=== PATIENT | female | born 1995 | race Caucasian/White ===

== ENCOUNTER 2018-09-22 21:13 | Emergency (ER) | payer OTHER, SELFPAY ==
--- OUTSIDE RECORDS SUMMARY | 2018-09-22 21:17 | XMS REPORT | Continuity of Care Document ---
:1995 Author Organization [facility] Address [address] [place] [address] Phone Unavailable Care Team Providers Name Role Phone PHYSICIAN, NO Primary Care Physician Unavailable Insurance Providers Guarantor Shady Greene Address [address] [place] [address] Email NONE Payer [facility] Policy Number [id number] Subscriber's Name Tarun Greene Relationship Spouse Group Number [id number] Group Name NA Payer [facility] Policy Number [id number] Subscriber's Name Shady Greene Relationship Self / Same As Patient Group Number NA Group Name NA Advance Directives Directive Response Recorded Date/Time Advance Directives No 07/12/15 3:04pm Directive to Physicians/Living Will No 07/12/15 3:04pm Health Care Proxy No 07/12/15 3:04pm Organ Donor Yes 07/12/15 3:04pm Medical Power of Railroad Dispatcher No 07/12/15 3:04pm Patient/Family Given Education Material R/T Y - 04/21/18...SBM 04/21/18 10: 07am Directives? Problems Medical Problem Onset Date Status 39 weeks gestation of Unknown care and examination immediately after delivery Unknown Vaginal delivery Unknown Acute Surgical Problem Onset Date Status Status post normal vaginal delivery Unknown Medications Current Home Medications Medication Dose Units Route Directions Days Qty Instructions Start Date Ibuprofen 800 800 Mg ORAL Every 8 Hours 40 Tablet 03/15/17 Mg Tab as needed for Pain 1 Tab ORAL Once Daily Multivit-Min W/Fe-Fa * ( *) Tab Past Home Medications Medication Directions Ordered Status Hydrocodone-Acetaminophen Every 4-6H As Needed/ Pain as 07/12/15 Discontinued 5/325MG * ([place] 5/325MG *) 1 needed for Pain Tab Tab, 1-2 Tabs Oral Hydrocodone-Acetaminophen Every 4-6H As Needed/ Pain as 07/12/15 Discontinued 5/325MG * ([place] 5/325MG *) 1 needed for Pain Tab Tab, 1-2 Tabs Oral Ibuprofen 800 Mg Tab, 800 Mg Every 6 Hours As Needed 07/12/15 Discontinued Oral Social History Smoking Status Start Date Stop Date Never smoker Hospital Discharge Instructions No hospital discharge instruction information available. Plan of Care Discharge Date 04/21/18 1:10pm Disposition PATIENT DISCHARGE HOME OR SELF Instructions/Education Provided Third Trimester of Prescriptions See Medication Section Functional Status No functional status information available. Allergies, Adverse Reactions, Alerts No known allergies. Immunizations Immunization Event Date Type Not Given Dose Number Lot Number Extract Mixer Reason TDaP 03/14/17 Not Given Patient refusal SANOFI PS Vital Signs No vital sign information available. Results Laboratory Results Test Name Result Units Flags Reference Collection Result Comments Date/Time Date/Time Specimen Type QUEST 03/27/2018 03/27/2018 TESTS SENT TO LAB PREFERENCE OF CUSTOMER OR CUSTOMERS (Misc Panel) 10:38am 10:39am INSURANCE Urine Color LIGHT 04/21/2018 04/21/2018 YELLOW 10:28am 11:13am Urine CLEAR CLEAR 04/21/2018 04/21/2018 Appearance 10:28am 11:13am Urine Glucose NEGATIVE NEGATIVE 04/21/2018 04/21/2018 10:28am 11:13am Urine Bilirubin NEGATIVE NEGATIVE 04/21/2018 04/21/2018 10:28am 11:13am Urine Ketones NEGATIVE NEGATIVE 04/21/2018 04/21/2018 10:28am 11:13am Urine Specific 1.011 1.003-1.030 04/21/2018 04/21/2018 [place] 10:28am 11:13am Urine Blood NEGATIVE NEGATIVE 04/21/2018 04/21/2018 10:28am 11:13am Urine pH 8.000 5-9 04/21/2018 04/21/2018 10:28am 11:13am Urine Protein NEGATIVE NEGATIVE 04/21/2018 04/21/2018 10:28am 11:13am Urine NORMAL mg/dL 0.2-1.0 04/21/2018 04/21/2018 Urobilinogen 10:28am 11:13am Urine Nitrate NEGATIVE NEGATIVE 04/21/2018 04/21/2018 10:28am 11:13am Urine Leukocyte NEGATIVE NEGATIVE 04/21/2018 04/21/2018 Esterase 10:28am 11:13am Urine RBC <1 /hpf 0-5 04/21/2018 04/21/2018 10:28am 11:25am Urine WBC 1-5 /hpf 0-5 04/21/2018 04/21/2018 10:28am 11:25am Urine 1-5 /hpf 0-5 04/21/2018 04/21/2018 Epithelial 10:28am 11:25am Cells Urine Bacteria MODERATE /hpf H None Detect 04/21/2018 04/21/2018 (2+) 10:28am 11:25am Urine Casts None /lpf None Detect 04/21/2018 04/21/2018 Detected 10:28am 11:25am Urine Culture YES 04/21/2018 04/21/2018 --- 04/21/18 1125 --- Reflexed 10:28am 11:25am URINE CULTURE? previously reported as: NO Procedures No procedure information available. Encounters Encounter Location Arrival/Admit Date Discharge/Depart Date Attending Provider Departed [place] 04/21/18 10:12am 04/21/18 1:10pm SRINIVAS, Emergency Room Formerly [facility] SKY Baird MD Medical Ctr Registered [place] 03/27/18 10:37am DICLEMENTHaris, Referred Regional TARUN Hu MD Medical Ctr Registered [place] 02/26/18 1:04pm DICMALCOLM, Referred Regional TARUN Hu MD Medical Ctr
--- OUTSIDE RECORDS SUMMARY | 2018-09-22 21:17 | XMS REPORT | Encounter Summary ---
:1995 Author Reason for Visit ob 36 week visit Instructions 1. Routine care US, obstetric, limited urinalysis, dipstick Discussion Note Advised patient to monitor movement and report if decreased. Labor symptoms reviewed. Take PNV and iron daily if tolerated. Asked her to call if she has symptoms of ruptured membranes or persistent regular contractions. Patient educational handouts: No information available. Plan of Care Reminders Provider Appointments OB Follow up García Gerard, 06/30/2018 2:45PM Lab Urinalysis, In-House Results Dipstick 06/23/2018 Referral None recorded. Procedures None recorded. Surgeries None recorded. Imaging US, In-House Results Obstetric, Limited 06/23/2018 Medications Name Start Date Macrobid 100 mg capsule Take 1 capsule twice a day by oral route for 5 days. omeprazole 40 mg capsule,delayed release Take 1 capsule every day by oral route. Vistaril 50 mg capsule Take 1 capsule every 6 hours by oral route as needed. Zithromax Z-Herminio 250 mg tablet TAKE 2 TABLETS (500 MG) po now, THEN 1 TABLET (250 MG) po ONCE DAILY FOR 4 DAYS Medications Administered None recorded. Vitals Height BMI Blood Pressure 5 ft 5 in 40.1 kg/m2 115/92 mm[Hg] Lab Results Date Name Specimen Result Interpretation Description Value Range Status Address 06/23/2018 Urinalysis, Leukocytes Small In-House Dipstick Results: For Internal Use Only Nitrite negative In-House Results: For Internal Use Only Urobilinogen .2 In-House Results: For Internal Use Only Protein Negative In-House Results: For Internal Use Only Ph 7.5 In-House Results: For Internal Use Only Blood Negative In-House Results: For Internal Use Only Specific 1.020 In-House [place] Results: For Internal Use Only Ketone Negative In-House Results: For Internal Use Only Bilirubin Negative In-House Results: For Internal Use Only Glucose Negative In-House Results: For Internal Use Only Appearance Clear In-House Results: For Internal Use Only Color Yellow In-House Results: For Internal Use Only 06/09/2018 Streptococcus Results Final [place] Group B, Regional Culture, Vaginal [facility] or [facility] (Lab): [address] [place] [address] US, Obstetric, No observation In-House Limited recorded. Results: For Internal Use Only Allergies Code Code System Name Reaction Severity Status Onset NKDA Problems Name Status Onset Date Source Active 04/24/2018 Gastroesophageal Reflux Disease without Active 05/02/2018 Esophagitis Acute Cystitis in , Antepartum Active 05/02/2018 Exposure to Bordetella Pertussis Active 05/26/2018 History of Delivery of Macrosomal Infant Active Procedures Date Name Performed by Cataract Surgery Complex Information not available 06/23/2018 US, Obstetric, Limited In-House Results For Internal Use Only [address] Vaccine List None recorded. Social History Smoking Status Never Smoker Past Encounters 06/23/2018 Routine Care García Gerard MD: [address] [place] [phone], Ph. [phone] 06/09/2018 Screening; Gastroesophageal Reflux Disease without Esophagitis; History of Delivery of Macrosomal DESTINY Coto: [address] [place] [phone], Ph. [phone] History of Present Illness None recorded. Review of Systems None recorded. Physical Exam None recorded.
--- OUTSIDE RECORDS SUMMARY | 2018-09-22 21:17 | XMS REPORT | Encounter Summary ---
:1995 Author Reason for Visit ob 35 week visit Instructions 1. screening streptococcus group B, culture, vaginal or rectal 2. Gastroesophageal reflux disease without esophagitis 3. History of delivery of macrosomal Discussion Note Discussed GBS and reason for testing. Discussed movement and PTL symptoms. Reminded patient to take iron and PNV, stay well hydrated, and call if movement is decreased, or if regular contractions, bleeding, or symptoms of ruptured membranes occur. Patient educational handouts: No information available. Plan of Care Reminders Provider Appointments OB Sono Sonogram 06/23/2018 10:45AM OB Sono García Gerard, 06/23/2018 10:45AM Lab Streptococcus In-House Results Group B, Culture, Vaginal 06/09/2018 or Rectal Referral None recorded. Procedures None recorded. Surgeries None recorded. Imaging None recorded. Medications Name Start Date Macrobid 100 mg [...] DAYS Medications Administered None recorded. Vitals Height Weight BMI Blood Pressure 5 ft 5 in 237 lbs 39.4 kg/m2 121/83 mm[Hg] Lab Results Date Name Specimen Result Interpretation Description Value Range Status Address 05/23/2018 Urinalysis, Leukocytes Trace In-House Dipstick Results: For Internal Use Only Nitrite negative In-House Results: For Internal Use Only Urobilinogen .2 In-House Results: For Internal Use Only Protein Negative In-House Results: For Internal Use Only Ph 7.0 In-House Results: For Internal Use Only Blood Negative In-House Results: For Internal Use Only Specific 1.020 In-House [place] Results: For Internal Use Only Ketone Negative In-House Results: For Internal Use Only Bilirubin Negative In-House Results: For Internal Use Only Glucose Negative In-House Results: For Internal Use Only Appearance Clear In-House Results: For Internal Use Only Color Yellow In-House Results: For Internal Use Only US, Obstetric, No observation In-House Limited recorded. Results: For Internal Use Only Allergies Code Code System Name Reaction Severity Status Onset NKDA Problems Name Status Onset Date Source Active 04/24/2018 Gastroesophageal Reflux Disease without Active 05/02/2018 Esophagitis Acute Cystitis in , Antepartum Active 05/02/2018 Exposure to Bordetella Pertussis Active 05/26/2018 History of Delivery of Macrosomal Active Procedures Date Name Performed by Cataract Surgery Complex Information not available 05/23/2018 US, Obstetric, Limited In-House Results For Internal Use Only [address] Vaccine List None recorded. Social History Smoking Status Never Smoker Past Encounters 06/09/2018 Screening; Gastroesophageal Reflux Disease without Esophagitis; History of Delivery of Macrosomal Infant DESTINY Coto: [address] [place] [phone], Ph. [phone] 05/23/2018 Routine Care; History of Delivery of Macrosomal Infant García Gerard MD: [address] [place] [address], Ph. [phone] History of Present Illness Note: Presents for 35 week LEVAR/GBS visit after missed 34 week LEVAR. Daryl ann contractions for pastweek without bleeding, LOF, or regularity. Very good daily fm. Taking pnv/iron. Desires to discuss IOL.Review of Systems: ROS as noted in the HPI Review of Systems None recorded. Physical Exam None recorded.
--- OUTSIDE RECORDS SUMMARY | 2018-09-22 21:18 | XMS REPORT | Encounter Summary ---
:1995 Author Reason for Visit Pre- OP Instructions 1. Pre-surgery evaluation test, urine urinalysis, dipstick Tylenol-Codeine #3 300 mg-30 mg tablet ibuprofen 800 mg tablet 2. Sterilization requested Discussion Note Risks, benefits, and alternatives of laparoscopic bilateral tubal ligation discussed. Permanent nature of procedure, risk of future regret, and possible failure rate of 0.5-1 % reviewed. Written info given. Procedure scheduled for 08/20/18. Patient educational handouts: No information available. Plan of Care Reminders Provider Appointments Surgery García Gerard, 08/20/2018 9:30AM Post Op Visit García Gerard, 09/01/2018 10:45AM Lab In-House Results Test, Urine 08/18/2018 Urinalysis, In-House Results Dipstick 08/18/2018 Referral None recorded. Procedures None recorded. Surgeries None recorded. Imaging None recorded. Medications Name Start Date ibuprofen 800 mg tablet Take 1 tablet every 6 hours by oral route as needed. Macrobid 100 mg capsule Take 1 capsule twice a day by oral route for 5 days. omeprazole 40 mg capsule,delayed release Take 1 capsule every day by oral route. Tylenol-Codeine #3 300 mg-30 mg tablet 1-2 p.o. q 6 hrs PRN pain Vistaril 50 mg capsule Take 1 capsule every 6 hours by oral route as needed. Zithromax Z-Herminio 250 mg tablet TAKE 2 TABLETS (500 MG) po now, THEN 1 TABLET (250 MG) po ONCE DAILY FOR 4 DAYS Medications Administered None recorded. Vitals Height Weight BMI Blood Pressure 5 ft 5 in 230.8 lbs 38.4 kg/m2 128/92 mm[Hg] Lab Results Date Name Specimen Result Interpretation Description Value Range Status Address 08/18/2018 CBC W/ Normal White Blood 9.4 K/uL 4.0-11.5 Final [place] Auto Diff Count K/uL [facility] Red Blood 4.81 M/uL 3.80-5.20 Final [place] Count M/uL [facility] (Lab): [address] [place] [address] Normal Hemoglobin 11.2 g/dL 10.5-15.7 Final [place] g/dL [facility] (Lab): [address] [place] [address] Normal Hematocrit 37.3 % 34.0-50.0 Final [place] % [facility] (Lab): [address] [place] [address] Low Mean 77.5 fL 78-98 fL Final [place] Corpuscular [facility] Volume [facility] (Lab): [address] [place] [address] Low Mean 23.4 pg 26.2-33.4 Final [place] Corpuscular pg [facility] Hemoglobin [facility] (Lab): [address] [place] [address] Mean 30.2 g/dL 31.5-36.2 Final [place] Corpuscular g/dL [facility] HGB [facility] (Lab): [address] [place] [address] High Red Cell 17.6 % 11.5-15.5 Final [place] Distribution % [facility] (Lab): [address] [place] [address] High Platelet 356 K/uL 137-338 Final [place] Count K/uL [facility] (Lab): [address] [place] [address] Low Mean 8.3 fL 8.4-11.8 Final [place] Platelet fL [facility] (Lab): [address] [place] [address] Normal Neutrophils 70.4 % 44.4-80.1 Corrected [place] % % [facility] (Lab): [address] [place] [address] Normal Lymphocyte% 21.9 % 10.0-50.0 Final [place] % [facility] (Lab): [address] [place] [address] Normal [place] % 4.6 % 3.6-12.04 Final [place] % [facility] (Lab): [address] [place] [address] Normal Eos % 2.6 % 0.0-5.41 Final [place] % [facility] (Lab): [address] [place] [address] Normal Basophil % 0.5 % 0.0-0.79 Final [place] % [facility] (Lab): [address] [place] [address] 08/18/2018 Urinalysis Urine Leukocytes Trace In-House , Dipstick Results: For Internal Use Only Urine Nitrite negative In-House Results: For Internal Use Only Urine Urobilinoge .2 In-House n Results: For Internal Use Only Urine Protein Negative In-House Results: For Internal Use Only Urine Ph 7.0 In-House Results: For Internal Use Only Urine Blood Non-Hemol In-House yzed: Results: Trace For Internal Use Only Urine Specific 1.010 In-House [place] Results: For Internal Use Only Urine Ketone Negative In-House Results: For Internal Use Only Urine Bilirubin Negative In-House Results: For Internal Use Only Urine Glucose Negative In-House Results: For Internal Use Only Urine Appearance Clear In-House Results: For Internal Use Only Urine Color Yellow In-House Results: For Internal Use Only 08/18/2018 Urine negative In-House Test, Test Results: Urine For Internal Use Only 07/28/2018 Urinalysis Urine Leukocytes Small In-House , Dipstick Results: For Internal Use Only Urine Nitrite negative In-House Results: For Internal Use Only Urine Urobilinoge .2 In-House n Results: For Internal Use Only Urine Protein Negative In-House Results: For Internal Use Only Urine Ph 7.5 In-House Results: For Internal Use Only Urine Blood Small In-House Results: For Internal Use Only Urine Specific 1.020 In-House [place] Results: For Internal Use Only Urine Ketone Negative In-House Results: For Internal Use Only Urine Bilirubin Negative In-House Results: For Internal Use Only Urine Glucose Negative In-House Results: For Internal Use Only Urine Appearance Clear In-House Results: For Internal Use Only Urine Color Yellow In-House Results: For Internal Use Only Allergies Code Code System Name Reaction Severity Status Onset NKDA Problems Name Status Onset Date Source Gastroesophageal Reflux Disease without Active 05/02/2018 Esophagitis Acute Cystitis in , Antepartum Active 05/02/2018 Exposure to Bordetella Pertussis Active 05/26/2018 Sterilization Requested Active 07/28/2018 History of Delivery of Macrosomal Active Procedures Date Name Performed by Cataract Surgery Complex Information not available Vaccine List None recorded. Social History Smoking Status Never Smoker Past Encounters 08/18/2018 Pre-surgery Evaluation; Sterilization Requested García Gerard MD: [address] [place] [address], [address], [place] [address], Ph. [phone] 07/28/2018 Care; Contraception Education; Sterilization Requested García Gerard MD: [address] [place] [address], [address], [place] [address], Ph. [phone] History of Present Illness Note: Pre-op visit. 22 year-old , s/p 07/07/18, desires permanent sterilization. Risks, benefits, and alternatives to tubal ligation discussed. Patient understands this is a permanent procedure and that there is a failure rate of 1%. Review of Systems [employer] ROS Reported By: Patient Constitutional: Constitutional: no fatigue, no fever, no significant weight gain, no significant weight loss Skin: Skin: no abnormal moles, no rashes Eyes: Eyes: no irritation, no vision changes ENMT: ENMT: no hearing loss, no ear pain, no nose/sinus problems, no sore throat, no snoring, no dry mouth, no mouth ulcers Respiratory: Respiratory: no dyspnea / shortness of breath, no cough, no sputum production, no hemoptysis, no wheezing Cardiovascular: Cardiovascular: no chest pain, no palpitations, no orthopnea Gastrointestinal: Gastrointestinal: no heartburn, no dysphagia, no nausea, no vomiting, no abdominal pain, no bowel movement changes, no diarrhea, no constipation, no rectal bleeding Genitourinary: Genitourinary: no hematuria, no abnormal bleeding, no flank pain, no trouble urinating, no incontinence, no rash, no lesion, no discharge, no vaginal odor, no vaginal itching Endocrine: Menstrual: no menstrual problems, no PMDD symptoms. Menopausal: no menopausal symptoms. Sexual: no sexual problems Musculoskeletal: Musculoskeletal: no muscle aches, no muscle weakness, no arthralgias/joint pain, no back pain Neurological: Neurologic: no headaches, no dizziness, no LOC, no weakness, no numbness, no seizures Psychological: Psych: no depression, no alcoholism, no sleep disturbances Physical Exam Annual Obstetrics Nurse Reported By: Patient Constitutional: General Appearance: healthy-appearing, well-nourished, well- developed Psychiatric: Orientation: to time, to place, to person. Mood and Affect: active and alert, normal mood, normal affect Skin: Appearance: no rashes, no lesions Neck: Neck: supple, trachea midline, no masses, FROM. Thyroid: no enlargement, no nodules, non-tender Lungs: Respiratory Effort: no intercostal retractions, no accessory muscle usage. Auscultation: clear to auscultation, no wheezing, no rales/crackles, no rhonchi Cardiovascular: Auscultation: RRR, no murmur. Peripheral Vascular: no LLE edema, no RLE edema, no varicosities, no calf tenderness, no palpable cords, pedal pulses intact Abdomen: Auscultation/Inspection/Palpation: soft, non-distended, no tenderness, no hepatomegaly, no splenomegaly, no masses, no CVA tenderness. Hernia: none palpated Lymph Nodes: Palpation: non tender submandibular nodes
--- OUTSIDE RECORDS SUMMARY | 2018-09-22 21:18 | XMS REPORT | Encounter Summary ---
:1995 Author Reason for Visit ob 38 week visit Instructions 1. Routine care urinalysis, dipstick 2. Acute cystitis in , antepartum culture, urine 3. History of delivery of macrosomal 4. Gastroesophageal reflux disease without esophagitis Discussion Note Discussed risks, benefits, and alternatives of induction of labor, including prolonged labor, infection, dsitress, failed induction, and increased risk of section. Details of use of Pitocin explained. Induction scheduled for 07/07/18. Patient educational handouts: No information available. Plan of Care Reminders Provider Appointments Post García Gerard, Visit 07/28/2018 11:00AM Lab Urinalysis, In-House Results Dipstick 06/30/2018 Culture, In-House Results Urine 06/30/2018 Referral None recorded. Procedures None recorded. Surgeries [...] BMI Blood Pressure 5 ft 5 in 241 lbs 40.1 kg/m2 121/85 mm[Hg] Lab Results Date Name Specimen Result Interpretation Description Value Range Status Address 06/30/2018 Urinalysis, Leukocytes Trace In-House Dipstick Results: For Internal Use Only Nitrite negative In-House Results: For Internal Use Only Urobilinogen .2 In-House Results: For Internal Use Only Protein Trace In-House Results: For Internal Use Only Ph 8.0 In-House Results: For Internal Use Only Blood Moderate In-House Results: For Internal Use Only Specific 1.020 In-House [place] Results: For Internal Use Only Ketone Negative In-House Results: For Internal Use Only Bilirubin Negative In-House Results: For Internal Use Only Glucose Negative In-House Results: For Internal Use Only Appearance Clear In-House Results: For Internal Use Only Color Yellow In-House Results: For Internal Use Only 06/23/2018 Urinalysis, Leukocytes Small In-House Dipstick Results: For Internal Use Only Nitrite negative In-House Results: For Internal Use Only Urobilinogen .2 In-House Results: For Internal Use Only Protein Negative In-House Results: For Internal Use Only Ph 7.5 In-House Results: For Internal Use Only Blood Negative In-House Results: For Internal Use Only Specific 1.020 In-House [place] Results: For Internal Use Only Ketone Negative In-House Results: For Internal Use Only Bilirubin Negative In-House Results: For Internal Use Only Glucose Negative In-House Results: For Internal Use Only Appearance Clear In-House Results: For Internal Use Only Color Yellow In-House Results: For Internal Use Only 06/09/2018 Streptococcus Results Final [place] [facility], Regional Culture, Vaginal [facility] (Lab): [address] [place] [address] US, Obstetric, No observation In-House Limited recorded. [...] Limited In-House Results For Internal Use Only [address] Vaccine List None recorded. Social History Smoking Status Never Smoker Past Encounters 06/30/2018 Routine Care; Acute Cystitis in , Antepartum; History of Delivery of Macrosomal ; Gastroesophageal Reflux Disease without Esophagitis García Gerard MD: [address] [place] [phone], Ph. [phone] 06/23/2018 Routine Care García Gerard MD: [address] [place] [phone], Ph. [phone] 06/09/2018 Screening; Gastroesophageal Reflux Disease without Esophagitis; History of Delivery of Macrosomal DESTINY Coto: [address] [place] [phone], Ph. [phone] History of Present Illness None recorded. Review of Systems None recorded. Physical Exam None recorded.
--- OUTSIDE RECORDS SUMMARY | 2018-09-22 21:18 | XMS REPORT | Encounter Summary ---
:1995 Author Reason for Visit Post Visit Instructions 1. care urinalysis, dipstick 2. Contraception education 3. Sterilization requested Discussion Note Risks, benefits, and alternatives of laparoscopic bilateral tubal ligation discussed. Permanent nature of procedure, risk of future regret, and possible failure rate of 0.5-1 % reviewed. Written info given. Procedure scheduled for 08/20/18. Patient educational handouts: No information available. Plan of Care Reminders Provider Appointments PRE-OP García Gerard, 08/18/2018 9:45AM Surgery García Gerard, 08/20/2018 9:30AM Lab Urinalysis, In-House Results Dipstick 07/28/2018 Referral None recorded. Procedures None recorded. Surgeries [...] DAYS Medications Administered None recorded. Vitals Height Blood Pressure 5 ft 5 in 142/121 mm[Hg] Lab Results Date Name Specimen Result Interpretation Description Value Range Status Address 07/28/2018 Urinalysis, Urine Leukocytes Small In-House Dipstick Results: For Internal Use Only Urine Nitrite negative In-House Results: For Internal Use Only Urine Urobilinogen .2 In-House Results: For Internal Use Only Urine Protein Negative In-House Results: For Internal Use Only Urine Ph 7.5 In-House Results: For Internal Use Only Urine Blood Small In-House Results: For Internal Use Only Urine Specific 1.020 In-House [place] Results: For Internal Use Only Urine Ketone Negative In-House Results: For Internal Use Only Urine Bilirubin Negative In-House Results: For Internal Use Only Urine Glucose Negative In-House Results: For Internal Use Only Urine Appearance Clear In-House Results: For Internal Use Only Urine Color Yellow In-House Results: For Internal Use Only 07/08/2018 CBC W/ Auto High White Blood 12.9 K/uL 4.0-11. Final [place] Diff Count 5 K/uL [facility] (Lab): [address] [place] [address] Normal Red Blood 3.96 M/uL 3.80-5. Final [place] Count 20 M/uL [facility] (Lab): [address] [place] [address] Low Hemoglobin 9.3 g/dL 10.5-15 Final [place] .7 g/dL [facility] (Lab): [address] [place] [address] Low Hematocrit 29.8 % 34.0-50 Final [place] .0 % [facility] (Lab): [address] [place] [address] Low Mean 75.2 fL 78-98 Final [place] Corpuscular fL [facility] Volume [facility] (Lab): [address] [place] [address] Low Mean 23.4 pg 26.2-33 Final [place] Corpuscular .4 pg [facility] Hemoglobin [facility] (Lab): [address] [place] [address] Low Mean 31.2 g/dL 31.5-36 Final [place] Corpuscular .2 g/dL [facility] (Lab): [address] [place] [address] High Red Cell 15.7 % 11.5-15 Final [place] Distribution .5 % [facility] (Lab): [address] [place] [address] Normal Platelet 223 K/uL 137-338 Final [place] Count K/uL [facility] (Lab): [address] [place] [address] Normal Mean 8.4 fL 8.4-11. Final [place] Platelet 8 fL [facility] (Lab): [address] [place] [address] Normal Neutrophils 72.5 % 44.4-80 Correct [place] % .1 % ed [facility] (Lab): [address] [place] [address] Normal Lymphocyte% 20.2 % 10.0-50 Final [place] .0 % [facility] (Lab): [address] [place] [address] Normal [place] % 5.8 % 3.6-12. Final [place] 04 % [facility] (Lab): [address] [place] [address] Normal Eos % 1.1 % 0.0-5.4 Final [place] 1 % [facility] (Lab): [address] [place] [address] Normal Basophil % 0.4 % 0.0-0.7 Final [place] 9 % [facility] (Lab): [address] [place] [address] 07/07/2018 CBC W/ Auto Normal White Blood 10.7 K/uL 4.0-11. Final [place] Diff Count 5 K/uL [facility] (Lab): [address] [place] [address] Normal Red Blood 4.39 M/uL 3.80-5. Final [place] Count 20 M/uL [facility] (Lab): [address] [place] [address] Low Hemoglobin 10.2 g/dL 10.5-15 Final [place] .7 g/dL [facility] (Lab): [address] [place] [address] Low Hematocrit 33.0 % 34.0-50 Final [place] .0 % [facility] (Lab): [address] [place] [address] Low Mean 75.2 fL 78-98 Final [place] Corpuscular fL [facility] Volume [facility] (Lab): [address] [place] [address] Low Mean 23.3 pg 26.2-33 Final [place] Corpuscular .4 pg [facility] Hemoglobin [facility] (Lab): [address] [place] [address] Low Mean 31.0 g/dL 31.5-36 Final [place] Corpuscular .2 g/dL [facility] HGB [facility] (Lab): [address] [place] [address] High Red Cell 16.1 % 11.5-15 Final [place] Distribution .5 % [facility] (Lab): [address] [place] [address] Normal Platelet 259 K/uL 137-338 Final [place] Count K/uL [facility] (Lab): [address] [place] [address] Normal Mean 8.7 fL 8.4-11. Final [place] Platelet 8 fL [facility] (Lab): [address] [place] [address] Normal Neutrophils 70.9 % 44.4-80 Correct [place] % .1 % ed [facility] (Lab): [address] [place] [address] Normal Lymphocyte% 20.7 % 10.0-50 Final [place] .0 % [facility] (Lab): [address] [place] [address] Normal [place] % 7.1 % 3.6-12. Final [place] 04 % [facility] (Lab): [address] [place] [address] Normal Eos % 0.7 % 0.0-5.4 Final [place] 1 % [facility] (Lab): [address] [place] [address] Normal Basophil % 0.6 % 0.0-0.7 Final [place] 9 % [facility] (Lab): [address] [place] [address] 07/07/2018 RPR (Rapid Normal Rpr nonreactive nonreac Final [place] Plasma tive Regional [place]), [facility] (Lab): [address] [place] [address] 07/07/2018 HBsAg Normal .Hepatitis B negative negativ Final [place] (Hepatitis B Surface e Regional Surface Ag), Antigen [facility] Serum [place] (Lab): [address] [place] [address] 06/30/2018 Culture, Bacteria Ur no growth Final [place] Urine Cult after 2 Regional days [facility] (Lab): [address] [place] [address] 06/30/2018 Urinalysis, Leukocytes Trace In-House Dipstick Results: For Internal Use Only Nitrite negative In-House Results: For Internal Use Only Urobilinogen .2 In-House Results: For Internal Use Only Protein Trace In-House Results: For Internal Use Only Ph 8.0 In-House Results: For Internal Use Only Blood Moderate In-House Results: For Internal Use Only Specific 1.020 In-House [place] Results: For Internal Use Only Ketone Negative [...] Active 07/28/2018 History of Delivery of Macrosomal Infant Active Procedures Date Name Performed by Cataract Surgery Complex Information not available Vaccine List None recorded. Social History Smoking Status Never Smoker Past Encounters 07/28/2018 Care; Contraception Education; Sterilization Requested García Gerard MD: [address], [address], [place] [address], Ph. [phone] 06/30/2018 Routine Care; Acute Cystitis in , Antepartum; History of Delivery of Macrosomal ; Gastroesophageal Reflux Disease without Esophagitis García Gerard MD: [address] [place] [address], [address], [place] [address], Ph. [phone] History of Present Illness Visit Reported By: Patient HPI: Onset/Timing: date of delivery:. Quality: , control method. Context: complications of : none, complications of labor: none, laceration:, feeding choice: breast, depression, good support from partner/family. Associated Symptoms: no abnormal bleeding, no pelvic pain, laceration well healed, no constipation, no fecal incontinence, no dysuria, no urinary incontinence, no fever, no problems, no mastitis Note: 07/07/18. Bleeding is very light. Breast feeding without problems. Does not feel that she has any significant depression. She desires permanent sterilization.Review of Systems: ROS as noted in the HPI Review of Systems None recorded. Physical Exam Post : Vaginal Delivery Reported By: Patient General Appearance: General Appearance: healthy-appearing, well-nourished, no acute distress Psychiatric: Orientation: to time, to place, to person. Mood and Affect: active and alert, normal mood, normal affect Skin: Appearance: no rashes, no lesions
--- OUTSIDE RECORDS SUMMARY | 2018-09-22 21:18 | XMS REPORT | Continuity of Care Document ---
:1995 Author Organization [facility] Address [address] [place] [address] Phone Unavailable Care Team Providers Name Role Phone PHYSICIAN, NO Primary Care Physician Unavailable Insurance Providers Guarantor Shady Greene Address [address] [place] [address] Email [email or web address] (fka [employer]) [facility] Policy Number [id number] Subscriber's Name Tarun Greene Relationship Spouse Group Number [id number] Group Name NA [facility] Policy Number [id number] Subscriber's Name Shady Greene Relationship Self / Same As Patient Group Number NA Group Name NA Advance Directives Directive Response Recorded Date/Time Advance Directives No 07/12/15 3:04pm Advance Directive on File No 07/07/18 2:52pm Directive to Physicians/Living Will No 07/12/15 3:04pm Health Care Proxy No 07/12/15 3:04pm Organ Donor Yes 07/12/15 3:04pm Medical Power of Leadership Program Internship No 07/12/15 3:04pm Patient/Family Given Education Material R/T Directives? No 07/07/18 2:52pm Problems Medical Problem Onset Date Status 39 weeks gestation of Unknown care and examination immediately after delivery Unknown Vaginal delivery Unknown Acute Surgical Problem Onset Date Status Status post normal vaginal delivery Unknown Medications Current Home Medications Medication Dose Units Route Directions Days Qty Instructions Start Date Ibuprofen 800 800 Mg ORAL Every 6 Hours 30 Tablet 07/08/18 Mg Tab As Needed as needed for Pain 1 Tab ORAL Once Daily Multivit-Min W/Fe-Fa * ( *) Tab Past Home Medications Medication Directions Ordered Status Hydrocodone-Acetaminophen Every 4-6H As Needed/ Pain as 07/12/15 Discontinued 5/325MG * ([place] 5/325MG *) 1 needed for Pain Tab Tab, 1-2 Tabs Oral Hydrocodone-Acetaminophen Every 4-6H As Needed/ Pain as 07/12/15 Discontinued 5/325MG * ([place] 5/325MG *) 1 needed for Pain Tab Tab, 1-2 Tabs Oral Ibuprofen 800 Mg Tab, 800 Mg Every 8 Hours as needed for 03/15/17 Discontinued Oral Pain Ibuprofen 800 Mg Tab, 800 Mg Every 6 Hours As Needed 07/12/15 Discontinued Oral Social History Smoking Status Start Date Stop Date Never smoker Hospital Discharge Instructions No hospital discharge instruction information available. Plan of Care Discharge Date 07/08/18 12:28pm Disposition PATIENT DISCHARGE HOME OR SELF Instructions/Education Provided Home Care Instructions for Mom Care After Vaginal Delivery Forms Provided Portal Welcome Letter Prescriptions See Medication Section Functional Status No functional status information available. Allergies, Adverse Reactions, Alerts No known allergies. Immunizations Immunization Event Date Type Not Given Dose Number Lot Number Waterworks Operator Reason TDaP 03/14/17 Not Given Patient refusal HOAOFI PS Vital Signs Acute Vital Signs Vital Response Date/Time Blood Pressure 124/60 mm Hg 07/08/2018 8:02am Pulse Pulse Rate (adult) 93 beats per minute (60 - 100) 07/08/2018 8:02am Respiratory Rate 18 breaths per minute (10 - 24) 07/08/2018 8:02am Temperature Source Oral 07/08/2018 8:02am Height 5 ft 5 in 07/07/2018 2:02pm Weight 241 lb 07/07/2018 2:02pm Body Mass Index 40.1 kg/m^2 07/07/2018 2:02pm Results Laboratory Results Test Name Result Units Flags Reference Collection Result Comments Date/Time Date/Time White Blood 12.9 K/ul H 4.0-11.5 07/08/2018 07/08/2018 Count 5:08am 5:32am Red Blood 3.96 M/ul 3.80-5.20 07/08/2018 07/08/2018 Count 5:08am 5:32am Hemoglobin 9.3 g/dl L 10.5-15.7 07/08/2018 07/08/2018 5:08am 5:32am Hematocrit 29.8 % L 34.0-50.0 07/08/2018 07/08/2018 5:08am 5:32am Mean 75.2 fl L 78-98 07/08/2018 07/08/2018 Corpuscular 5:08am 5:32am Volume Mean 23.4 pg L 26.2-33.4 07/08/2018 07/08/2018 Corpuscular 5:08am 5:32am Hemoglobin Mean 31.2 g/dl L 31.5-36.2 07/08/2018 07/08/2018 Corpuscular 5:08am 5:32am Hemoglobin Concent Red Cell 15.7 % H 11.5-15.5 07/08/2018 07/08/2018 Distribution 5:08am 5:32am Width Platelet Count 223 K/ul 137-338 07/08/2018 07/08/2018 5:08am 5:32am Mean Platelet 8.4 fl 8.4-11.8 07/08/2018 07/08/2018 Volume 5:08am 5:32am Neutrophils 72.5 % 44.4-80.1 07/08/2018 07/08/2018 (%) (Auto) 5:08am 5:32am Lymphocytes 20.2 % 10.0-50.0 07/08/2018 07/08/2018 (%) (Auto) 5:08am 5:32am Monocytes (%) 5.8 % 3.6-12.04 07/08/2018 07/08/2018 (Auto) 5:08am 5:32am Eosinophils 1.1 % 0.0-5.41 07/08/2018 07/08/2018 (%) (Auto) 5:08am 5:32am Basophils (%) 0.4 % 0.0-0.79 07/08/2018 07/08/2018 (Auto) 5:08am 5:32am Rapid Plasma NONREACTIVE NONREACTIVE 07/07/2018 07/07/2018 [place] 5:11am 10:00am Hepatitis B Negative Negative 07/07/2018 07/08/2018 [facility] Surface 5:11am 7:05am [address] [place], [place] [id number] Antigen Collection Agent: Jam Baires MD, Phone: [phone] Procedures Procedure Status Date Provider(s) URINE BACTERIA CULTURE Completed 06/30/18 STREP B DNA AMP PROBE Completed 06/09/18 Encounters Encounter Location Arrival/Admit Date Discharge/Depart Date Attending Provider Discharged [place] 07/07/18 4:44am 07/08/18 12:28pm [facility], Inpatient [facility]ly [facility] MATILDA Cowan MD Medical Ctr Registered [place] 06/30/18 3:49pm [facility], Clinic [facility] MATILDA Cowan MD Medical Ctr Registered [place] 06/09/18 1:18pm [facility] Clinic [facility] [place] [facility] Medical [facility]tr
--- NOTE | 2018-09-22 23:53 | EDPHYS ---
Physician Documentation [facility] Name: Mateo Ly Age: 22 yrs Sex: Female : 1995 Arrival Date: 09/22/2018 Time: 21:17 Bed 13 Private MD: ED Physician Ry Canseco HPI: 09/23 06:56 This 22 yrs old Female presents to ER via Ambulatory with complaints of tw4 Dizziness, Memory Loss, Slurred Speech, Facial Droop. 06:56 The patient presents with dizziness. Onset: The symptoms/episode began/occurred today. tw4 Context: occurred at home. Modifying factors: The symptoms are alleviated by nothing, the symptoms are aggravated by nothing. Associated signs and symptoms: The patient has no apparent associated signs or symptoms. Severity of symptoms: At their worst the symptoms were moderate in the emergency department the symptoms are unchanged. The patient has not experienced similar symptoms in the past. 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 - Social history:: Smoking status: Patient/guardian denies using tobacco, the patient reports quitting approximately 2 years ago. - Ebola Screening: : No symptoms or risks identified at this time. ROS: 09/23 06:56 Constitutional: Negative for fever, chills, and weight loss, Eyes: Negative for injury, tw4 pain, redness, and discharge, Cardiovascular: Negative for chest pain, palpitations, and edema, Respiratory: Negative for shortness of breath, cough, wheezing, and pleuritic chest pain, Abdomen/GI: Negative for abdominal pain, nausea, vomiting, diarrhea, and constipation, Back: Negative for injury and pain, MS/Extremity: Negative for injury and deformity, Skin: Negative for injury, rash, and discoloration. Neuro: Positive for dizziness, visual changes. Exam: 06:56 Constitutional: This is a well developed, well nourished patient who is awake, alert, tw4 and in no acute distress. Head/Face: Normocephalic, atraumatic. Chest/axilla: Normal chest wall appearance and motion. Nontender with no deformity. No lesions are appreciated. Cardiovascular: Regular rate and rhythm with a normal S1 and S2. No gallops, murmurs, or rubs. Normal PMI, no JVD. No pulse deficits. Respiratory: Lungs have equal breath sounds bilaterally, clear to auscultation and percussion. No rales, rhonchi or wheezes noted. No increased work of breathing, no retractions or nasal flaring. Abdomen/GI: Soft, non-tender, with normal bowel sounds. No distension or tympany. No guarding or rebound. No evidence of tenderness throughout. MS/ Extremity: Pulses equal, no cyanosis. Neurovascular intact. Full, normal range of motion. Vital Signs: 09/22 21:28 BP 120 / 83; Pulse 88; Resp 18; Temp 98; Pulse Ox 100% on R/A; Weight 101.15 kg (R); ak1 Height 5 ft. 5 in. (165.10 cm) (R); Pain 8/10; 22:30 BP 102 / 69; Pulse 90; Resp 16; Pulse Ox 100% on R/A; aa1 23:03 BP 113 / 68; Pulse 92; Resp 16; Pulse Ox 100% on R/A; aa1 09/23 00:02 BP 115 / 65; Pulse 88; Resp 16; Temp 98.2; Pulse Ox 100% on R/A; Pain 0/10; aa1 09/22 21:28 Body Mass Index 37.11 (101.15 kg, 165.10 cm) ak1 NIH Stroke Scale Scores: 09/22 21:32 NIHSS Score: 0 ak1 MDM: 21:36 Patient medically screened. tw4 09/23 06:58 Data reviewed: vital signs, nurses notes. Counseling: I had a detailed discussion with tw4 the patient and/or guardian regarding: the historical points, exam findings, and any diagnostic results supporting the discharge/admit diagnosis. Special discussion: I discussed with the patient/guardian in detail that at this point there is no indication for admission to the hospital. It is understood, however, that if the symptoms persist or worsen the patient needs to return immediately for re-evaluation. 09/22 21:57 Order name: CT Head Brain wo Cont tw4 Administered Medications: No medications were administered Disposition: 07:04 Chart complete. tw4 Disposition: 09/22/18 23:53 Discharged to Home. Impression: Visual disturbances. - Condition is Stable. - Discharge Instructions: Blurred Vision, Adult, Visual Disturbances. - Medication Reconciliation Form, Thank You Letter, Antibiotic Education, Prescription Opioid Use form. - Follow up: Private Physician; When: Upon discharge from the Emergency Department; Reason: If symptoms return, Recheck today's complaints, Continuance of care. - Problem is new. - Symptoms have improved. NIH Stroke Scale - NIH Stroke Score Date: 09/22/2018 Time: 21:32 Total Score = 0 1a. Level of Consciousness (LOC) - 0(Alert) 1b. Level of Consciousness (LOC) (Year \T\ Age) - 0(Both) 1c. LOC Commands (Open \T\ Closes Eyes/Electrical Engineering Technologist) - 0(Both) 2. Best Gaze (Lateral Gaze Paresis) - 0(Normal) 3. Visual Field Loss - 0(No visual loss) 4. Facial Palsy - 0(Normal) 5a. Left Arm: Motor (10-second hold) - 0(No drift) 5b. Right Arm: Motor (10-second hold) - 0(No drift) 6a. Left Leg: Motor (5-second hold - always test supine) - 0(No drift) 6b. Right Leg: Motor (5-second hold - always test supine) - 0(No drift) 7. Limb Ataxia (finger/nose \T\ heel/vines - test with eyes open) - 0(Absent) 8. Sensory Loss (pinprick arms/legs/face) - 0(Normal) 9. Best Language: Aphasia (description/naming/reading) - 0(No aphasia) 10. Dysarthria (speech clarity - read or repeat words) - 0(Normal) 11. Extinction and Inattention (visual/tactile/auditory/spatial/personal) - 0(No abnormality) Initials: ak1 Signatures: Dispatcher [employer] EDMS Brandie Chaney RN RN aa1 Dora Michel RN RN ak1 Ry Canseco MD MD tw4 Corrections: (The following items were deleted from the chart) 00:08 09/22 23:53 09/22/2018 23:53 Discharged to Home. Impression: Visual aa1 disturbances. Condition is Stable. Forms are Medication Reconciliation Form, Thank You Letter, Antibiotic Education, Prescription Opioid Use. Follow up: Private Physician; When: Upon discharge from the Emergency Department; Reason: If symptoms return, Recheck today's complaints, Continuance of care. Problem is new. Symptoms have improved. tw4
--- NOTE | 2018-09-22 23:53 | ER ---
Nurse's Notes [facility] Name: Mateo Ly Age: 22 yrs Sex: Female : 1995 Arrival Date: 09/22/2018 Time: 21:17 Bed 13 Private MD: Diagnosis: Visual disturbances Presentation: 09/22 21:29 Presenting complaint: Patient states: right side facial numbness "for weeks" pt c/o ak1 right side general weakness "for weeks" pt with clear speech. pt family at bedside stated at 2100 09/21/18 pt had drooping to right corner of her mouth that resolved after "30 minuets". Transition of care: patient was not received from another setting of care. No acute neurological deficit is noted. Onset of symptoms is unknown. Risk Assessment: Do you want to hurt yourself or someone else? Patient reports no desire to harm self or others. Initial Sepsis Screen: Does the patient meet any 2 criteria? No. Patient's initial sepsis screen is negative. Does the patient have a suspected source of infection? No. Patient's initial sepsis screen is negative. Care prior to arrival: None. 21:29 Method Of Arrival: Ambulatory ak1 21:29 Acuity: JOSEP 3 ak1 Triage Assessment: 21:32 The onset of the patients symptoms was more than six hours ago. General: Appears in no ak1 apparent distress. Behavior is calm, cooperative. 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 Gait is steady, Speech is normal, Facial symmetry appears normal, Reports dizziness, headache "for weeks". 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 - Social history:: Smoking status: Patient/guardian denies using tobacco, the patient reports quitting approximately 2 years ago. - Ebola Screening: : No symptoms or risks identified at this time. Screenin:45 Abuse screen: Denies threats or abuse. Denies injuries from another. Nutritional aa1 screening: No deficits noted. Tuberculosis screening: No symptoms or risk factors identified. Fall Risk None identified. Assessment: 21:45 General: Appears in no apparent distress. comfortable, Behavior is calm, cooperative, aa1 appropriate for age. Pain: Complains of pain in scalp Quality of pain is described as aching. 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 Full function Gait is steady, Speech is normal, Facial symmetry appears normal, Pupils are PERRLA, Intact Reports dizziness, since several weeks numbness in right side of head since several weeks. Cardiovascular: Denies chest pain, palpitations, shortness of breath. Respiratory: Airway is patent Respiratory effort is even, unlabored, Respiratory pattern is regular, symmetrical. GI: No signs and/or symptoms were reported involving the gastrointestinal system. : No signs and/or symptoms were reported regarding the genitourinary system. EENT: No signs and/or symptoms were reported regarding the EENT system. Derm: Skin is intact, is healthy with good turgor, Skin is pink, warm \\T\\ dry. Musculoskeletal: Circulation, motion, and sensation intact. Capillary refill < 3 seconds. 21:45 VAN Scoring: Arm Drift: Patients demonstrates NO arm weakness. Patient is VAN Negative. aa1 Visual Disturbance: No visual disturbance noted. Aphasia: No aphasia noted. Neglect: No neglect noted. 23:02 Reassessment: Patient appears in no apparent distress at this time. Patient and/or aa1 family updated on plan of care and expected duration. Pain level reassessed. Patient is alert, oriented x 3, equal unlabored respirations, skin warm/dry/pink. Awaiting CT results. 09/23 00:02 Reassessment: Patient appears in no apparent distress at this time. Patient is alert, aa1 oriented x 3, equal unlabored respirations, skin warm/dry/pink. Discussed d/c \\T\\ f/u instructions with pt \\T\\ significant other; denies questions or concerns at this time Patient states feeling better. Vital Signs: 09/22 21:28 BP 120 / 83; Pulse 88; Resp 18; Temp 98; Pulse Ox 100% on R/A; Weight 101.15 kg (R); ak1 Height 5 ft. 5 in. (165.10 cm) (R); Pain 8/10; 22:30 BP 102 / 69; Pulse 90; Resp 16; Pulse Ox 100% on R/A; aa1 23:03 BP 113 / 68; Pulse 92; Resp 16; Pulse Ox 100% on R/A; aa1 09/23 00:02 BP 115 / 65; Pulse 88; Resp 16; Temp 98.2; Pulse Ox 100% on R/A; Pain 0/10; aa1 09/22 21:28 Body Mass Index 37.11 (101.15 kg, 165.10 cm) ak1 NIH Stroke Scale Scores: 09/22 21:32 NIHSS Score: 0 ak1 ED Course: 21:17 Patient arrived in ED. es 21:28 Arm band placed on Patient placed in an exam room, on a stretcher, Patient notified of ak1 wait time. 21:30 Triage completed. ak1 21:36 Ry Canseco MD is Attending Physician. tw4 21:45 Patient has correct armband on for positive identification. Bed in low position. Call aa1 light in reach. Pulse ox on. NIBP on. 21:58 Brandie Chaney, RN is Primary Nurse. aa1 21:[address] via wheelchair. 2 22:04 CT completed. Patient tolerated procedure well. Patient moved back from CT. nj 22:13 CT Head Brain wo Cont In Process Unspecified. EDMS 09/23 00:02 No provider procedures requiring assistance completed. Patient did not have IV access aa1 during this emergency room visit. Administered Medications: No medications were administered Outcome: 09/22 23:53 Discharge ordered by . tw4 09/23 00:02 Discharged to home ambulatory. aa1 Condition: good Discharge instructions given to patient, significant other, Instructed on discharge instructions, follow up and referral plans. medication usage, Demonstrated understanding of instructions, follow-up care, medications. 00:08 Patient left the ED. aa1 NIH Stroke Scale - NIH Stroke Score Date: 09/22/2018 Time: 21:32 Total Score = 0 1a. Level of Consciousness (LOC) - 0(Alert) 1b. Level of Consciousness (LOC) (Year \\T\\ Age) - 0(Both) 1c. LOC Commands (Open \\T\\ Closes Eyes/Contour Stitcher) - 0(Both) 2. Best Gaze (Lateral Gaze Paresis) - 0(Normal) 3. Visual Field Loss - 0(No visual loss) 4. Facial Palsy - 0(Normal) 5a. Left Arm: Motor (10-second hold) - 0(No drift) 5b. Right Arm: Motor (10-second hold) - 0(No drift) 6a. Left Leg: Motor (5-second hold - always test supine) - 0(No drift) 6b. Right Leg: Motor (5-second hold - always test supine) - 0(No drift) 7. Limb Ataxia (finger/nose \\T\\ heel/vines - test with eyes open) - 0(Absent) 8. Sensory Loss (pinprick arms/legs/face) - 0(Normal) 9. Best Language: Aphasia (description/naming/reading) - 0(No aphasia) 10. Dysarthria (speech clarity - read or repeat words) - 0(Normal) 11. Extinction and Inattention (visual/tactile/auditory/spatial/personal) - 0(No abnormality) Initials: ak1 Signatures: Dispatcher [employer] Brandie Mariscal, RN RN aa1 Miriam Wright Amber, RN RN ak1 Renato Rosas Victoria vm2 Wadley, Terrence, MD MD tw4
--- NOTE | 2018-09-23 11:17 | RAD REPORT ---
EXAM DESCRIPTION: CT - Head Brain Wo Cont - 09/22/2018 10:27 pm CLINICAL HISTORY: 22 years Female CONFUSED TECHNIQUE: Contiguous axial CT images obtained through the brain without IV contrast. This CT exam was performed according to our departmental dose-optimization program, which includes on e or more of the following dose reduction techniques: automated exposure control, adjustment of the m A and/or kV according to patient size, and/or use of iterative reconstruction technique. COMPARISON: No prior exams provided for comparison. FINDINGS: There is no intracranial hemorrhage, extraaxial collection, or acute transcortical infarct ion. The ventricles are normal in size and contour without mass-effect or midline shift. Osseous structure s are normal. The paranasal sinuses and mastoid air cells are clear. IMPRESSION: No acute intracranial abnormalities. Electronically signed by: Elza Ortega MD 09/22/2018 10:17 PM CDT Due to temporary technical issues with the PACS/Fluency reporting system, reports are being signed by the in house radiologist as a courtesy to ensure prompt reporting. The interpreting radiologist is f ully responsible for the content of the report.
== END 2018-09-23 00:08 | disposition home or self-care (01) ==
LOC: ER 21:13
DX: H53.9 Unspecified visual disturbance (principal)
CPT/HCPCS: 70450; 99284